=== PATIENT | male | born 1965 | race Caucasian/White ===

== ENCOUNTER 2017-07-04 08:14 | Day surgery (SDC) | payer BC ==
[2017-06-30 15:59] VITALS: BMI 29.7
[~2017-07-04 08:14] MED LIST: LACTATED RINGERS 1,000 ML IV SCH; LIDOCAINE 1% 20 ML VIAL (10MG/ML) FOR IV START INTRADERMA PRN
[2017-07-04 08:35] VITALS: TEMP 97.9
[2017-07-04] MEDS ORDERED: fentaNYL (PF) 50 MCG/ML 2 ML AMP ONE (08:59)
[2017-07-04] MEDS ORDERED: PROPOFOL 10 MG/ML 20 ML VIAL IV ONE (08:59)
[2017-07-04] MEDS ORDERED: LIDOCAINE 1% INJ 10MG/ML (20 ML MDV) ONE (08:59)
--- NOTE | 2017-07-04 09:07 | P.GSHP ---
History of Present Illness H&P Date: 07/04/17 Chief Complaint: Screening colonoscopy This a 51-year-old male referred from john Seo PA-C. Patient is today for screening colonoscopy. He denies any significant GI complaints. Past Medical History Past Medical History: No Reported History History of Any Multi-Drug Resistant Organisms: None Reported Past Surgical History: Cholecystectomy, Hernia Repair Past Anesthesia/Blood Transfusion Reactions: No Reported Reaction, Motion Sickness Past Psychological History: No Psychological Hx Reported Smoking Status: Never smoker Past Alcohol Use History: None Reported Past Drug Use History: None Reported - Past Family History Mother Family Medical History: Cancer Additional Family Medical History / Comment(s): BREAST CANCER Medications and Allergies Home Medications Medication Instructions Recorded Confirmed Type No Known Home Medications [No 06/30/17 07/04/17 History Known Home Medications] Allergies Allergy/AdvReac Type Severity Reaction Status Date / Time No Known Allergies Allergy Verified 07/04/17 08:25 Surgical - Exam Vital Signs Temp Pulse Resp BP Pulse Ox 97.9 F 65 16 122/82 95 07/04/17 08:34 07/04/17 08:34 07/04/17 08:34 07/04/17 08:34 07/04/17 08:34 - General well developed, no distress - Eyes PERRL - ENT normal pinna - Neck no masses - Respiratory normal expansion - Cardiovascular Rhythm: regular - Abdomen Abdomen: soft, non tender Assessment and Plan Assessment: We'll perform screening colonoscopy.
--- NOTE | 2017-07-04 09:18 | P.OP ---
Date of Procedure: 07/04/17 Preoperative Diagnosis: Screening colonoscopy Postoperative Diagnosis: Normal colonoscopy Procedure(s) Performed: Colonoscopy Anesthesia: MAC Surgeon: Sonny Fitzgerald Pathology: none sent Condition: stable Disposition: PACU Description of Procedure: PROCEDURE: The patient was placed on the endoscopy table in the lateral position. Digital rectal examination was performed which revealed no abnormalities. The prostate was symmetrical without nodules. Flexible colonoscope was then placed in the patient's anus and passed throughout the entire colon. The ileocecal valve was visualized. The cecum, ascending, transverse, descending and sigmoid colon were normal. The rectum was normal as well. There were no masses, polyps or diverticula noted in the entire colon. SUMMARY OF FINDINGS: Normal colonoscopy.
[2017-07-04 09:29] VITALS: RESP 18
[2017-07-04 09:49] VITALS: BP 129/81; PULSE 55
== END 2017-07-04 09:55 | disposition home or self-care (01) ==
LOC: ORWHC2ENDO 08:14
PROVIDERS: ATTEND Surgery
DX: Z12.11 Encounter for screening for malignant neoplasm of colon (principal); Z90.49 Acquired absence of other specified parts of digestive tract
CPT/HCPCS: J2001; J3010; J2704; G0121

== ENCOUNTER 2018-06-26 19:45 | Emergency (ER) | payer BC ==
[2018-06-26 19:49] VITALS: RESP 16; TEMP 100
[2018-06-26] MEDS ORDERED: KETOROLAC 30 MG/ML 1 ML VIAL IVP STA (20:28)
[2018-06-26] MEDS ORDERED: SODIUM CHLORIDE 0.9% 1,000 ML IV STA ×2 (20:28)
[2018-06-26] MEDS ORDERED: MORPHINE SULFATE 2 MG/ML SYRINGE IVP ONE (20:52)
[2018-06-26 21:34] LABS: Basophils % (A) 0 %; Eosinophils # (A) 0.1 k/uL (0-0.7); Eosinophils % (A) 1 %; HCT 47.9 % (39.0-53.0); HGB 15.5 gm/dL (13.0-17.5); Lymphocytes # (A) 0.4 k/uL (1.0-4.8); Lymphocytes % (A) 5 %; MCH 26.1 pg (25.0-35.0); MCHC 32.5 g/dL (31.0-37.0); MCV 80.3 fL (80.0-100.0); Mean Platelet Volume 6.8; Monocytes # (A) 0.4 k/uL (0-1.0); Monocytes % (A) 6 %; Neutrophils # (A) 5.6 k/uL (1.3-7.7); Neutrophils % (A) 86 %; Platelet Count 239 k/uL (150-450); RBC 5.96 m/uL (4.30-5.90); WBC 6.5 k/uL (3.8-10.6)
[2018-06-26 21:35] LABS: Albumin 4.7 g/dL (3.5-5.0); Calcium 9.6 mg/dL (8.4-10.2); Potassium 3.9 mmol/L (3.5-5.1); Total Bilirubin 0.8 mg/dL (0.2-1.3)
--- NOTE | 2018-06-26 21:35 | ED ---
General Adult HPI - General Chief complaint: Nausea/Vomiting/Diarrhea Stated complaint: NVD Time Seen by Provider: 06/26/18 20:27 Source: patient, RN notes reviewed, old records reviewed Mode of arrival: ambulatory Limitations: no limitations - History of Present Illness Initial comments: Patient's 2-year-old male presents return today with fever and nausea and vomiting and diarrhea for the past day. Patient complains of no significant abdominal pain. Reports he feels better arterial vomit. He had a normal colonoscopy 2 years ago. Surgical history includes cholecystectomy. He is a nondrinker and nonsmoker. Generally healthy. Was sent in by PCP to rule out appendicitis. - Related Data Home Medications Medication Instructions Recorded Confirmed Ibuprofen [Motrin Ib] 600 mg PO ONCE 06/26/18 06/26/18 Ondansetron [Zofran ODT] 4 mg PO Q8HR PRN 06/26/18 06/26/18 Previous Rx's Medication Instructions Recorded Ondansetron Odt [Zofran Odt] 4 mg PO Q8HR PRN #12 tab 06/26/18 Allergies Allergy/AdvReac Type Severity Reaction Status Date / Time No Known Allergies Allergy Verified 06/26/18 20:38 Review of Systems ROS Statement: Those systems with pertinent positive or pertinent negative responses have been documented in the HPI. ROS Other: All systems not noted in ROS Statement are negative. Past Medical History Past Medical History: No Reported History History of Any Multi-Drug Resistant Organisms: None Reported Past Surgical History: Cholecystectomy, Hernia Repair Past Anesthesia/Blood Transfusion Reactions: No Reported Reaction, Motion Sick ness Past Psychological History: No Psychological Hx Reported Smoking Status: Never smoker Past Alcohol Use History: None Reported Past Drug Use History: None Reported - Past Family History Mother Family Medical History: Cancer Additional Family Medical History / Comment(s): BREAST CANCER General Exam - General Exam Comments Initial Comments: Well-appearing 52-year-old male. Alert and oriented 3. No significant distress. General: Well appearing, well nourished, in no distress. Oriented x 3, normal mood and affect . Ambulating without difficulty. Skin: Good turgor, no rash, unusual bruising or prominent lesions Hair: Normal texture and distribution. HEENT: Head: Normocephalic, atraumatic, no visible or palpable masses, depressions, or scaring. Eyes: Visual acuity intact, conjunctiva clear, sclera non-icteric, EOM intact, PERRL. Ears: EACs clear, TMs translucent & cone of light visualized. hearing intact. Nose: No external lesions, mucosa non-inflamed, septum and turbinates normal Mouth: Mucous membranes moist, no mucosal lesions. Teeth/Gums: No obvious caries or periodontal disease. No gingival inflammation or significant resorption. Pharynx: Mucosa non-inflamed, no tonsillar hypertrophy or exudate Neck: Supple, without lesions, bruits, or adenopathy, thyroid non-enlarged and non-tender Heart: No cardiomegaly or thrills; regular rate and rhythm, no murmur or gallop Lungs: Clear to auscultation and percussion Abdomen: Bowel sounds normal, no tenderness, organomegaly, masses, or hernia Back: Spine normal without deformity or tenderness, no CVA tenderness Extremities: No amputations or deformities, cyanosis, edema or varicosities, peripheral pulses intact Musculoskeletal: Normal gait and station. No misalignment, asymmetry, crepitation, defects, tenderness, masses, effusions, decreased range of motion, instability, atrophy or abnormal strength or tone in the head, neck, spine, ribs, pelvis or extremities. Neurologic: CN 2-12 normal. Sensation to pain, touch, and proprioception normal. DTRs normal in upper and lower extremities. No pathologic reflexes. Psychiatric: Oriented X3, intact recent and remote memory, judgment and insight, normal mood and affect. Limitations: no limitations Course Vital Signs 06/26/18 06/27/18 19:47 00:24 Temperature 100.0 F H Pulse Rate 98 67 Respiratory 16 16 Rate Blood Pressure 109/76 119/80 O2 Sat by Pulse 96 96 Oximetry Medical Decision Making - Medical Decision Making 52-year-old male presents for his nausea vomiting. He has a low-grade fever. No significant tenderness. Clavicles are unremarkable. Patient CT abdomen and pelvis completed as negative for any acute disease. His concern for appendicitis. Patient will be discharged at this time. PCP. Discharged with Rita. - Lab Data Result diagrams: 06/26/18 21:11 06/26/18 21:11 Lab Results 06/26/18 06/26/18 06/26/18 Range/Units 21:11 21:11 21:11 WBC 6.5 (3.8-10.6) k/uL RBC 5.96 H (4.30-5.90) m/uL Hgb 15.5 (13.0-17.5) gm/dL Hct 47.9 (39.0-53.0) % MCV 80.3 (80.0-100.0) fL MCH 26.1 (25.0-35.0) pg MCHC 32.5 (31.0-37.0) g/dL RDW 13.0 (11.5-15.5) % Plt Count 239 (150-450) k/uL Neutrophils % 86 % Lymphocytes % 5 % Monocytes % 6 % Eosinophils % 1 % Basophils % 0 % Neutrophils # 5.6 (1.3-7.7) k/uL Lymphocytes # 0.4 L (1.0-4.8) k/uL Monocytes # 0.4 (0-1.0) k/uL Eosinophils # 0.1 (0-0.7) k/uL Basophils # 0.0 (0-0.2) k/uL PT (9.0-12.0) sec INR (<1.2) APTT (22.0-30.0) sec Sodium 140 (137-145) mmol/L Potassium 3.9 (3.5-5.1) mmol/L Chloride 105 (98-107) mmol/L Carbon Dioxide 23 (22-30) mmol/L Anion Gap 12 mmol/L BUN 24 H (9-20) mg/dL Creatinine 1.22 (0.66-1.25) mg/dL Est GFR (CKD-EPI)AfAm 79 (>60 ml/min/1.73 sqM) Est GFR (CKD-EPI)NonAf 68 (>60 ml/min/1.73 sqM) Glucose 113 H (74-99) mg/dL Plasma Lactic Acid Mitch 1.1 (0.7-2.0) mmol/L Calcium 9.6 (8.4-10.2) mg/dL Total Bilirubin 0.8 (0.2-1.3) mg/dL AST 29 (17-59) U/L ALT 33 (21-72) U/L Alkaline Phosphatase 98 (38-126) U/L Total Protein 8.0 (6.3-8.2) g/dL Albumin 4.7 (3.5-5.0) g/dL Amylase 51 (30-110) U/L Lipase 34 (23-300) U/L 06/26/18 Range/Units 21:11 WBC (3.8-10.6) k/uL RBC (4.30-5.90) m/uL Hgb (13.0-17.5) gm/dL Hct (39.0-53.0) % MCV (80.0-100.0) fL MCH (25.0-35.0) pg MCHC (31.0-37.0) g/dL RDW (11.5-15.5) % Plt Count (150-450) k/uL Neutrophils % % Lymphocytes % % Monocytes % % Eosinophils % % Basophils % % Neutrophils # (1.3-7.7) k/uL Lymphocytes # (1.0-4.8) k/uL Monocytes # (0-1.0) k/uL Eosinophils # (0-0.7) k/uL Basophils # (0-0.2) k/uL PT 10.1 (9.0-12.0) sec INR 0.9 (<1.2) APTT 23.4 (22.0-30.0) sec Sodium (137-145) mmol/L Potassium (3.5-5.1) mmol/L Chloride (98-107) mmol/L Carbon Dioxide (22-30) mmol/L Anion Gap mmol/L BUN (9-20) mg/dL Creatinine (0.66-1.25) mg/dL Est GFR (CKD-EPI)AfAm (>60 ml/min/1.73 sqM) Est GFR (CKD-EPI)NonAf (>60 ml/min/1.73 sqM) Glucose (74-99) mg/dL Plasma Lactic Acid Mitch (0.7-2.0) mmol/L Calcium (8.4-10.2) mg/dL Total Bilirubin (0.2-1.3) mg/dL AST (17-59) U/L ALT (21-72) U/L Alkaline Phosphatase (38-126) U/L Total Protein (6.3-8.2) g/dL Albumin (3.5-5.0) g/dL Amylase (30-110) U/L Lipase (23-300) U/L - Radiology Data Radiology results: report reviewed Normal CT of the abdomen and pelvis. No evidence of acute process. Disposition Clinical Impression: Gastroenteritis Disposition: HOME SELF-CARE Condition: Good Instructions (If sedation given, give patient instructions): Acute Nausea and Vomiting (ED) Additional Instructions: Patient advised to have follow-up with primary care doctor. Alternating Motrin and Tylenol. Use nausea medicine as directed. Return to the emergency department if any alarming signs or symptoms occur. Prescriptions: Ondansetron Odt [Zofran Odt] 4 mg PO Q8HR PRN #12 tab PRN Reason: Nausea Is patient prescribed a controlled substance at d/c from ED?: No Referrals: Laura Myers DO [Primary Care Provider] - 1-2 days Time of Disposition: 23:37
[2018-06-26 21:41] LABS: INR 0.9 (<1.2); Partial Thromboplastin Time 23.4 sec (22.0-30.0); Prothrombin Time 10.1 sec (9.0-12.0)
--- NOTE | 2018-06-26 23:15 | CT ---
EXAM: CT Abdomen and Pelvis With Intravenous Contrast CLINICAL HISTORY: fever pain TECHNIQUE: Axial computed tomography images of the abdomen and pelvis with intravenous contrast. DLP is 859.8 mGy-cm. This CT exam was performed using one or more of the following dose reduction techniques: automated exposure control, adjustment of the mA and/or kV according to patient size, and/or use of iterative reconstruction technique. Coronal and sagittal reconstructions are performed COMPARISON: No relevant prior studies available. FINDINGS: Lung bases: Small amount of posterior dependent atelectasis. ABDOMEN: Liver: 4 mm hypodensity in the left lobe, too small to characterize Gallbladder and bile ducts: Cholecystectomy clips Pancreas: Unremarkable. No mass. No ductal dilation. Spleen: Unremarkable. No splenomegaly. Adrenals: Unremarkable. No mass. Kidneys and ureters: Small bilateral renal cysts. Larger cysts in the right kidney measuring about 14 mm Stomach and bowel: Unremarkable. No obstruction. No mucosal thickening. PELVIS: Appendix: Normal Bladder: Unremarkable. No mass. Reproductive: Unremarkable as visualized. ABDOMEN and PELVIS: Intraperitoneal space: Unremarkable. No free air. No significant fluid collection. Bones/joints: No acute fracture. No dislocation. Soft tissues: Unremarkable. Vasculature: Unremarkable. No abdominal aortic aneurysm. Lymph nodes: Unremarkable. No enlarged lymph nodes. IMPRESSION: No acute findings.
[2018-06-27 00:25] VITALS: BP 119/80; PULSE 67
== END 2018-06-27 00:25 | disposition home or self-care (01) ==
LOC: EC 19:45
DX: K52.9 Noninfective gastroenteritis and colitis, unspecified (principal); Z79.1 Long term (current) use of non-steroidal anti-inflammatories (NSAID); Z90.49 Acquired absence of other specified parts of digestive tract
CPT/HCPCS: 36415; 80053; 82150; 83605; 83690; 85025; 85610; 85730; 87040; 74177; 99284; 96374; 96375; 96361 ×3; J1885; J2270; Q9967

== ENCOUNTER 2018-07-16 17:53 | Emergency (ER) | payer BC ==
[2018-07-16 18:14] VITALS: BP 108/77; PULSE 60; RESP 18; TEMP 98.4
[2018-07-16] MEDS ORDERED: LIDOCAINE 1% INJ 10MG/ML (20 ML MDV) SQ ONE (18:20)
--- NOTE | 2018-07-16 18:39 | ED ---
Wound/Laceration HPI - General Chief Complaint: Wound/Laceration Stated Complaint: Head Lac Time Seen by Provider: 07/16/18 18:15 Source: patient Mode of arrival: ambulatory Limitations: no limitations - History of Present Illness Initial Comments: 53-year-old male presenting today for chief complaint of right forehead laceration. Patient states he was working in his pole barn when a screwdriver fell from a shelf striking his right side of head. Patient denies loss of conscious. He denies any headache dizziness nausea vomiting behavior changes or symptoms aside from bleeding at the site of the laceration, and pain at laceration site. Pt thought he may need suture, applied pressure and presented for evaluation. Pt states tetanus is UTD. Remaining ROS (-), denies any other areas of injury. - Related Data Home Medications Medication Instructions Recorded Confirmed Ibuprofen [Motrin Ib] 600 mg PO ONCE 06/26/18 06/26/18 Ondansetron [Zofran ODT] 4 mg PO Q8HR PRN 06/26/18 06/26/18 Previous Rx's Medication Instructions Recorded Ondansetron Odt [Zofran Odt] 4 mg PO Q8HR PRN #12 tab 06/26/18 Allergies Allergy/AdvReac Type Severity Reaction Status Date / Time No Known Allergies Allergy Verified 06/26/18 20:38 Review of Systems ROS Statement: Those systems with pertinent positive or pertinent negative responses have been documented in the HPI. ROS Other: All systems not noted in ROS Statement are negative. Past Medical History Past Medical History: No Reported History History of Any Multi-Drug Resistant Organisms: None Reported Past Surgical History: Cholecystectomy, Hernia Repair Past Anesthesia/Blood Transfusion Reactions: No Reported Reaction, Motion Sickness Past Psychological History: No Psychological Hx Reported Smoking Status: Never smoker Past Alcohol Use History: None Reported Past Drug Use History: None Reported - Past Family History Mother Family Medical History: Cancer Additional Family Medical History / Comment(s): BREAST CANCER General Exam - General Exam Comments Initial Comments: General: The patient is awake and alert, in no distress, and does not appear acutely ill. Eye: +3 mm pupils are equal, round and reactive to light, extra-ocular movements are intact. No nystagmus. There is normal conjunctiva bilaterally. No signs of icterus. Ears, nose, mouth and throat: There are moist mucous membranes and no oral lesions. No raccoon or Fair[place] sign. Neck: The neck is supple, there is no tenderness or JVD. Cardiovascular: There is a regular rate and rhythm. No murmur, rub or gallop is appreciated. Respiratory: Lungs are clear to auscultation, respirations are non-labored, breath sounds are equal. No wheezes, stridor, rales, or rhonchi. Gastrointestinal: Soft, non-distended, non-tender abdomen without masses or organomegaly noted. There is no rebound or guarding present. No CVA tenderness. Bowel sounds are unremarkable. Musculoskeletal: Normal ROM, no tenderness. Strength 5/5. Sensation intact. Pulses equal bilaterally 2+. Neurological: A&O x 3. CN II-XII intact, There are no obvious motor or sensory deficits. Coordination appears grossly intact. Speech is normal. Skin: Skin is warm and dry and no rashes. 2cm laceration linear of the right forehead. No underlying structure or FB upon exploration. No active bleeding. Psychiatric: Cooperative, appropriate mood & affect, normal judgment. Limitations: no limitations Course Vital Signs 07/16/18 18:10 Temperature 98.4 F Pulse Rate 60 Respiratory 18 Rate Blood Pressure 108/77 O2 Sat by Pulse 94 L Oximetry Procedures - Laceration Laceration #1 Consent Obtained: verbal consent Indication: laceration Site: face Size (cm): 2 Description: linear Depth: simple, single layer Anesthetic Used: lidocaine 1% Anesthesia Technique: local infiltration Amount (mls): 2 Pre-repair: wound explored, irrigated extensively, deep structures intact Type of Sutures: nylon Size of Sutures: 6-0 Number of Sutures: 5 Technique: simple, interrupted, running Patient Tolerated Procedure: well, no complications Medical Decision Making - Medical Decision Making 53-year-old male presenting today for chief complaint of forehead laceration. Patient had no loss of consciousness. He denies any neurological symptoms. No focal neurological deficits on examination. There is a superficial laceration of the right side of the forehead. Wound edges were approximated after e xtensive expiration, irrigation and cleansing. Local anesthetic was used 1% lidocaine. Patient tolerated procedure well. Return parameters as well as suture care and signs and symptoms of infection were discussed the patient verbalizes understanding. Patient was discharged appearing well after discussing the case with attending provider Dr. Pratt. Disposition Clinical Impression: Forehead laceration Disposition: HOME SELF-CARE Condition: Good Instructions (If sedation given, give patient instructions): Care For Your Stitches (ED), Laceration (ED) Additional Instructions: Please use topical medication as discussed. Please follow-up in the ER in 5 days for suture removal.. Please return to emergency room if the symptoms increase or worsen or for any other concerns. Is patient prescribed a controlled substance at d/c from ED?: No Referrals: Laura Myers DO [Primary Care Provider] - 1-2 days Time of Disposition: 18:39
== END 2018-07-16 18:53 | disposition home or self-care (01) ==
LOC: EC 17:53
DX: S01.81XA Laceration without foreign body of other part of head, initial encounter (principal); W20.8XXA Other cause of strike by thrown, projected or falling object, initial encounter; Y92.009 Unspecified place in unspecified non-institutional (private) residence as the place of occurrence of the external cause
CPT/HCPCS: 99282; 12011; J2001

== ENCOUNTER 2021-01-26 16:44 | Emergency (ER) | payer BC ==
[2021-01-26 17:01] VITALS: BP 91/62; PULSE 53; RESP 18; TEMP 98.2
[2021-01-26] MEDS ORDERED: LIDOCAINE 1% INJ 10MG/ML (20 ML MDV) SQ ONE (17:07)
[2021-01-26] MEDS ORDERED: KETOROLAC 15 MG/ML 1 ML VIAL IM STA (17:07)
[2021-01-26] MEDS ORDERED: BACITRACIN OINT 1 EACH PACKET TOPICAL ONE (17:08)
--- NOTE | 2021-01-26 18:05 | ED ---
Skin/Abscess/FB HPI - General Chief complaint: Skin/Abscess/Foreign Body Stated complaint: facial injury, lightheaded Time Seen by Provider: 01/26/21 17:04 Source: patient, RN notes reviewed Mode of arrival: wheelchair Limitations: no limitations - History of Present Illness Initial comments: Patient is a 55-year-old male presenting to the emergency department complaints of a laceration to his nose that happened just prior to arrival. Patient states he was on his riding lawnmower and went to talk underneath a tree to motor one underneath a tree however a piece of tree branch hit him in the nose and caused a laceration. He is not on blood thinners, the bleeding is controlled. He states he is having a lot of discomfort and feels a little dizzy from the pain. He is Up-to-date with his tetanus vaccine. He denies any further complaints at this time. - Related Data Home Medications Medication Instructions Recorded Confirmed Ibuprofen [Motrin Ib] 600 mg PO ONCE 06/26/18 06/26/18 Ondansetron [Zofran ODT] 4 mg PO Q8HR PRN 06/26/18 06/26/18 Previous Rx's Medication Instructions Recorded Ondansetron Odt [Zofran Odt] 4 mg PO Q8HR PRN #12 tab 06/26/18 Allergies Allergy/AdvReac Type Severity Reaction Status Date / Time No Known Allergies Allergy Verified 01/26/21 17:01 Review of Systems ROS Statement: Those systems with pertinent positive or pertinent negative responses have been documented in the HPI. ROS Other: All systems not noted in ROS Statement are negative. Past Medical History Past Medical History: No Reported History History of Any Multi-Drug Resistant Organisms: None Reported Past Surgical History: Cholecystectomy, Hernia Repair Past Anesthesia/Blood Transfusion Reactions: No Reported Reaction, Motion Sickness Past Psychological History: No Psychological Hx Reported Smoking Status: Never smoker Past Alcohol Use History: None Reported Past Drug Use History: None Reported - Past Family History Mother Family Medical History: Cancer Additional Family Medical History / Comment(s): BREAST CANCER General Exam - General Exam Comments Initial Comments: GENERAL: Patient is well-developed and well-nourished. Patient is nontoxic and in no acute distress. HEAD: Atraumatic, normocephalic. EYES: Pupils equal round and reactive to light, extraocular movements intact, sclera anicteric, conjunctiva are normal. Eyelids were unremarkable. ENT: Nares patent, oropharynx clear without exudates. Moist mucous membranes. NECK: Normal range of motion, supple without lymphadenopathy or JVD. LUNGS: Unlabored respirations. Breath sounds clear to auscultation bilaterally and equal. No wheezes rales or rhonchi. HEART: Regular rate and rhythm without murmurs, rubs or gallops. NEUROLOGICAL: Patient is alert and oriented x 3. SKIN: Warm, Dry, normal turgor, no rashes. Patient has a 1.5 cm laceration on the distal end of his nose, no active bleeding. He also has a mild abrasion to the right forehead and to the nasal bridge. Limitations: no limitations Course Vital Signs 01/26/21 16:57 Temperature 98.2 F Pulse Rate 53 L Respiratory 18 Rate Blood Pressure 91/62 O2 Sat by Pulse 99 Oximetry Procedures - Laceration Laceration #1 Consent Obtained: verbal consent Indication: laceration Site: face (nose) Size (cm): 0 (1.5cm) Description: linear Depth: simple, single layer Anesthetic Used: lidocaine 1% Anesthesia Technique: local infiltration Amount (mls): 2 Pre-repair: irrigated extensively Type of Sutures: nylon Size of Sutures: 6-0 Number of Sutures: 6 Technique: simple, interrupted Patient Tolerated Procedure: well Medical Decision Making - Medical Decision Making Patient is a 55-year-old male here with a 1.5 cm laceration to his nose secondary from a tree branch while he was cutting the lawn on a riding l awnmower. He has tetanus is up-to-date. He is not on blood thinners, bleeding controlled. Patient's wound was cleaned, closed with 6, 6-0 sutures. He tolerated procedure well. I also reinforced the wound with Steri-Strips. Sutures will be removed in 7-10 days, we discussed would care. He is stable for discharge and he is in agreement with this plan of care. Disposition Clinical Impression: Laceration of nose Disposition: HOME SELF-CARE Condition: Stable Instructions (If sedation given, give patient instructions): Care For Your Stitches (ED) Additional Instructions: Please return to the Emergency Department if symptoms worsen or any other concerns. Stitches need to be removed in 7-10 days. Keep area clean and dry. May take showers as normal. Take Tylenol and/or Motrin for pain relief, apply ice to the area to help with swelling control. Is patient prescribed a controlled substance at d/c from ED?: No Referrals: Laura Myers DO [Primary Care Provider] - 1-2 days Time of Disposition: 18:05
== END 2021-01-26 18:15 | disposition home or self-care (01) ==
LOC: EC 16:44
DX: S01.21XA Laceration without foreign body of nose, initial encounter (principal); R42 Dizziness and giddiness; W22.8XXA Striking against or struck by other objects, initial encounter; Y93.H2 Activity, gardening and landscaping; Y92.89 Other specified places as the place of occurrence of the external cause
CPT/HCPCS: 99283; 12011; 96372; J2001; J1885

== ENCOUNTER → 2022-09-30 | Outpatient (CLI) | payer BC ==
--- NOTE | 2022-09-30 14:13 | US ---
EXAMINATION TYPE: US venous doppler duplex LE RT DATE OF EXAM: 09/30/2022 1:49 PM COMPARISON: NONE CLINICAL INDICATION: Male, 57 years old with history of I80.9 PHLEBITIS AND THROMBOPHLEBITIS; Pt had outside imaging: Per [facility] MRI states: dilated gastroc veins, thrombosis vs. muscle strain PT has rt prox calf swelling and pain x 4 weeks SIDE PERFORMED: Right TECHNIQUE: The lower extremity deep venous system is examined utilizing real time linear array sonog yuniel with graded compression, doppler sonography and color-flow sonography. VESSELS IMAGED: Common Femoral Vein Deep Femoral Vein Greater Saphenous Vein * Femoral Vein Popliteal Vein Small Saphenous Vein * Proximal Calf Veins (* superficial vessels) Right Leg: Negative for DVT RT lateral gastroc veins in proximal calf appear fully thrombosed, another pair of gastroc veins medi ally are partially thrombosed within the proximal calf. Pt could not tolerate compressions in AOC. Th rombus does not appear to communicate with deep system at this time IMPRESSION: Exam positive for right lower extremity venous thrombosis, occlusive involving lateral ga stroc veins in the upper calf. There is additional nonocclusive thrombus within the pair of medial ga stroc veins in the upper calf. No clear communication with the deep venous system at this time.
== END | disposition home or self-care (01) ==
LOC: RADUSWWP 13:09
PROVIDERS: ATTEND Orthopaedic Surgery Sports Medicine
DX: I80.9 Phlebitis and thrombophlebitis of unspecified site (principal)

== ENCOUNTER 2022-10-27 09:19 | Emergency (ER) | payer BC ==
[2022-10-27] MEDS ORDERED: methocarbamoL 500 MG TAB PO STA (09:38)
[2022-10-27] MEDS ORDERED: KETOROLAC 15 MG/ML 1 ML VIAL IVP STA (09:38)
[2022-10-27] MEDS ORDERED: SODIUM CHLORIDE 0.9% 1,000 ML IV STA (09:38)
[2022-10-27] MEDS ORDERED: LORazepam 1 MG TAB PO STA (09:58)
[2022-10-27 10:00] LABS: Basophils % (A) 0 %; Eosinophils # (A) 0.2 k/uL (0-0.7); Eosinophils % (A) 2 %; HCT 38.6 % (39.0-53.0); HGB 12.9 gm/dL (13.0-17.5); Lymphocytes # (A) 0.7 k/uL (1.0-4.8); Lymphocytes % (A) 7 %; MCH 28.5 pg (25.0-35.0); MCHC 33.5 g/dL (31.0-37.0); MCV 85.1 fL (80.0-100.0); Mean Platelet Volume 7.7; Monocytes # (A) 0.5 k/uL (0-1.0); Monocytes % (A) 6 %; Neutrophils # (A) 7.8 k/uL (1.3-7.7); Neutrophils % (A) 85 %; Platelet Count 226 k/uL (150-450); RBC 4.54 m/uL (4.30-5.90); RDW 13.5 % (11.5-15.5); WBC 9.2 k/uL (3.8-10.6)
[2022-10-27 10:11] LABS: INR 1.1 (<1.2); Partial Thromboplastin Time 27.1 sec (22.0-30.0); Prothrombin Time 11.6 sec (9.0-12.0)
[2022-10-27 10:25] LABS: ALT 25 U/L (4-49); AST 29 U/L (17-59); African American GFR (CKD) 64 (>60 ml/min/1.73 sqM); Albumin 3.8 g/dL (3.5-5.0); Alkaline Phosphatase 77 U/L (38-126); Anion Gap 9 mmol/L; Blood Urea Nitrogen 18 mg/dL (9-20); Calcium 8.8 mg/dL (8.4-10.2); Carbon Dioxide 23 mmol/L (22-30); Chloride 106 mmol/L (98-107); Glucose 114 mg/dL (74-99); Non-African American GFR(CKD) 55 (>60 ml/min/1.73 sqM); Potassium 4.5 mmol/L (3.5-5.1); Sodium 138 mmol/L (137-145); Total Bilirubin 0.8 mg/dL (0.2-1.3); Total Protein 6.8 g/dL (6.3-8.2)
[2022-10-27 10:32] LABS: NT-Pro-B-Type Natriuretic Pept 22 pg/mL
--- NOTE | 2022-10-27 10:48 | CT ---
EXAMINATION TYPE: CT chest angio for PE DATE OF EXAM: 10/27/2022 COMPARISON: None HISTORY: Chest pain, hard to breath, known DVT CT DLP: 569 mGycm CONTRAST: CT chest with contrast and 3D reconstruction with MIP imaging is performed with IV Contrast, patient injected with 100 mL of Isovue 370. Contrast-enhanced CT of the chest was performed through the course of the pulmonary arteries with supriya g and mediastinal window settings submitted. 3D reconstruction with MIP imaging was also performed. PULMONARY ARTERIES: There is mild wall thickening of several lower lobe segmental and subsegmental br anches felt to reflect mild chronic pulmonary embolism. No acute occlusive pulmonary embolism is iden tified with certainty at this point in time. LUNGS: Dependent groundglass atelectasis. The lungs are clear and free of infiltrate. No evidence for atelectasis. No pulmonary nodule or mass is detected. No pleural effusion. MEDIASTINUM: Thoracic aorta is of normal caliber. The heart is mildly enlarged. No evidence for med iastinal mass. No mediastinal lymph nodes greater than 1cm. HILAR STRUCTURES: No evidence for mass. No hilar lymph nodes greater than 1 cm. UPPER ABDOMEN: No significant abnormality is seen. IMPRESSION: 1. There is mild wall thickening of several lower lobe segmental and subsegmental branches felt to reflect mild chronic pulmonary embolism. No acute occlusive pulmonary embolism is identified with cer tainty at this point in time.
--- NOTE | 2022-10-27 12:29 | XR ---
EXAMINATION TYPE: XR knee complete 3 views RT, XR tibia fibula 2 views RT DATE OF EXAM: 10/27/2022 COMPARISON: NONE HISTORY: 57-year-old male fall, pain FINDINGS: Right knee: Large joint effusion. Extensor mechanism appears intact. Degenerative spurring patellofem oral compartment. No acute fracture, subluxation, dislocation seen. Some irregularity at the tibial t uberosity suggesting chronic insertional tendinopathy. Tibia/fibula: No acute fracture is identified. Ankle articulation appears grossly intact. A fine 6 mm linear density projecting in the soft tissues of the lateral mid leg. IMPRESSION: 1. Right knee: Large knee joint effusion but without acute osseous abnormality seen. Consider interna l derangement and further MRI evaluation. 2. Tibia/fibula: A 6 mm linear density projecting in the soft tissues of the lateral mid leg could re present external artifact or tiny retained foreign body material. No acute osseous adenopathy seen.
[2022-10-27 12:58] VITALS: BP 108/68; PULSE 66; RESP 18; TEMP 97.9
--- NOTE | 2022-10-27 13:04 | ED ---
General Adult HPI - General Chief complaint: Shortness of Breath Stated complaint: rt leg pain - poss dvt Time Seen by Provider: 10/27/22 09:29 Source: patient, RN notes reviewed, old records reviewed Mode of arrival: EMS - History of Present Illness Initial comments: Patient is a 57-year-old male with past medical history remarkable for DVT diagnosis of weeks ago compliant with this HE states he fell yesterday onto his right knee and has since been having right calf pain. It attempt to take tramadol for pain control, and then had an anxiety attack. This has happened previously. Whenever he eats anything stronger than Tylenol or Motrin, he has panic attacks. States caused him to step breathing heavily, became short of breath. Denies any chest pain. Denies any obvious injuries. Difficulty with moving his right knee secondary to a muscle spasm sensation in the right calf. Denies any fevers, chills, sick contacts. Patient is a history of having anxiety attacks when he takes pain medications. Has no other acute complaints at this time. presents for further evaluation at this time over concern for his shortness of breath and is endorsing severe anxiety as well as muscle spasms in his right leg. - Related Data Home Medications Medication Instructions Recorded Confirmed Rivaroxaban [Xarelto] 20 mg PO DAILY 10/27/22 10/27/22 allopurinoL 300 mg PO DAILY 10/27/22 10/27/22 methocarbamoL [Robaxin] 1,000 mg PO BID PRN 10/27/22 10/27/22 Previous Rx's Medication Instructions Recorded Cyclobenzaprine [Flexeril] 5 mg PO TID PRN 7 Days #21 tablet 10/27/22 Diclofenac Sodium [Voltaren] 25 mg PO TID PRN 7 Days #21 tab 10/27/22 LORazepam [Ativan] 0.5 mg PO DAILY PRN 3 Days #3 tab 10/27/22 Allergies Allergy/AdvReac Type Severity Reaction Status Date / Time morphine AdvReac anxiety Verified 10/27/22 12:30 Review of Systems ROS Statement: Those systems with pertinent positive or pertinent negative responses have been documented in the HPI. Review of Systems: CONST: Endorses anxiety EYES: Denies blurry vision ENT: Denies nasal congestion C/V: Denies Chest pain RESP: Endorses shortness of breath GI: Denies abdominal pain : Denies dysuria SKIN: Denies rash. MSK: Endorses right leg pain NEURO: Denies headache ROS Other: All systems not noted in ROS Statement are negative. Past Medical History Past Medical History: Deep Vein Thrombosis (DVT) History of Any Multi-Drug Resistant Organisms: None Reported Past Surgical History: Cholecystectomy, Hernia Repair Past Anesthesia/Blood Transfusion Reactions: No Reported Reaction, Motion Sickn ess Past Psychological History: No Psychological Hx Reported Smoking Status: Never smoker Past Alcohol Use History: None Reported Past Drug Use History: None Reported - Past Family History Mother Family Medical History: Cancer Additional Family Medical History / Comment(s): BREAST CANCER General Exam - General Exam Comments Initial Comments: General: Appears very anxious. HEAD: Normal with no signs of head trauma. EYES: PERRLA, EOMI, conjunctiva normal, no discharge. ENT: Hearing grossly intact, normal oropharynx. RESPIRATORY: Clear breath sounds bilaterally. No wheezes, rales, or rhonchi. No hypoxia. No respiratory distress. C/V: Regular rate and rhythm. S1 and S2 auscultated, no edema, peripheral pulses 2+ and intact throughout ABD: Abd is soft, nontender, nondistended EXT: This range of motion the knee secondary to pain which he describes a pulling sensation radiating from the right posterior calf towards the posterior right thigh. No obvious skin changes. Tenderness with movement. Denies any knee pain on palpation. Denies any pelvis pain. No other acute complaints at this time. SKIN: No rashes or lesions observed on exposed skin. NEURO: Alert and oriented 4. Course Vital Signs 10/27/22 10/27/22 10/27/22 09:22 09:52 10:50 Temperature 98.6 F Pulse Rate 62 64 65 Respiratory 18 18 16 Rate Blood Pressure 121/80 125/90 127/74 O2 Sat by Pulse 97 97 99 Oximetry 10/27/22 12:55 Temperature 97.9 F Pulse Rate 66 Respiratory 18 Rate Blood Pressure 108/68 O2 Sat by Pulse 96 Oximetry Medical Decision Making - Medical Decision Making Was pt. sent in by a medical professional or institution (, PA, FORM BUILDING SUPERVISOR, urgent care, hospital, or fpc...) When possible be specific @ -No Did you speak to anyone other than the patient for history (EMS, parent, family, police, friend...)? What history was obtained from this source @ -No Did you review nursing and triage notes (agree or disagree)? Why? @ -I reviewed and agree with nursing and triage notes Were old charts reviewed (outside hosp., previous admission, EMS record, old EKG, old radiological studies, urgent care reports/EKG's, fpc records)? Report findings @ -No old charts were reviewed Differential Diagnosis (chest pain, altered mental status, abdominal pain women, abdominal pain men, vaginal bleeding, weakness, fever, dyspnea, syncope, headache, dizziness, GI bleed, back pain, seizure, CVA, palpatations, mental health, musculoskeletal)? @ -Differential Musculoskeletal Muscular strain, contusion, ligament sprain, fracture, arthritis, septic arthritis, bursitis, cellulitis, muscle spasm, nerve compression, DVT, arterial occlusion, herpes zoster, electrolyte abnormality, tumor.... This is not meant to be in all inclusive list Differential Dyspnea: Coronary syndrome, arrhythmia, tamponade, asthma, COPD, pulmonary embolism, pneumonia, pneumothorax, pulmonary effusion, anaphylaxis, diabetic ketoacidosis, flailed chest, pulmonary contusion, diaphragmatic rupture, anemia, eder romuscular, this is not meant to be an all-inclusive list. EKG interpreted by me (3pts min.). @ -As above X-rays interpreted by me (1pt min.). @ -X-rays of the right knee and right tib-fib negative for any obvious acute pr ocess. CT interpreted by me (1pt min.). @ -CT PE reveals no obvious large vessel occlusion or large vessel PE. Possible chronic PEs noted without any acute process. U/S interpreted by me (1pt. min.). @ -None done What testing was considered but not performed or refused? (CT, X-rays, U/S, labs)? Why? @ -None What meds were considered but not given or refused? Why? @ -None Did you discuss the management of the patient with other professionals (professionals i.e. , PA, FORM BUILDING SUPERVISOR, lab, RT, psych nurse, high school social studies tutor, roll press operator, teacher, chief business officer, keycase assembler)? Give summary @ -No Was smoking cessation discussed for >3mins.? @ -No Was critical care preformed (if so, how long)? @ -No Were there social determinants of health that impacted care today? How? (Homelessness, low income, unemployed, alcoholism, drug addiction, transportation, low edu. Level, literacy, decrease access to med. care, half-way, rehab)? @ -No Was there de-escalation of care discussed even if they declined (Discuss DNR or withdrawal of care, Hospice)? DNR status @ -No What co-morbidities impacted this encounter? (DM, HTN, Smoking, COPD, CAD, Cancer, CVA, ARF, Chemo, Hep., AIDS, mental health diagnosis, sleep apnea, morbid obesity)? @ -None Was patient admitted / discharged? Hospital course, mention meds given and route, prescriptions, significant lab abnormalities, going to OR and other pertinent info. @ -Based on the patient's presentation and physical exam, I do believe that he is experiencing anxiety after he took a pain medication, as his trace of breath started immediately after that. However he is also having right leg pain and appears to be more of a muscle strain. However we will obtain CT, as well as cardiac workup. He was in agreement this plan. He declines all opiate medications. He'll be given IV Toradol, 1 L fluid bolus, as well as Robaxin. He'll also be given Ativan for anxiety. He was in agreement this plan. Vital signs within acceptable limits. No respiratory distress. EKG showed no signs of acute ischemia. Patient's labs are relatively unremarkable. Troponin undetectable. BNP within normal limits. CT PE reveals no acute PE but does show findings according to radiology of possible chronic subsegmental PE on the right which does not appear to be causing any acute process. His x-ray shows no obvious acute traumatic injury. On reevaluation, I discussed results of the patient's as well as the patient. Patient's believes that the shortness of breath episode earlier also was secondary to pain meds that she gave him with tramadol is because of his muscle spasm sensation and she immediately began having anxiety which is typical and the patient receives pain medications. We discussed the CT imaging which was likely chronic. Patient is already on and is compliant with blood thinning medication. Has no obvious acute injury. I discussed is likely a muscle spasming. Patient is feeling improved. We will attempt discharge home at this time with close follow up with PCP. There were no agreement this plan. I will provide the patient with a prescription for Ativan, Flexeril, Voltaren. I instructed the patient to follow up with their PCP in the next 1-3 day . I explained that the patient should return to the emergency department if they experience any worsening symptoms. Strict return precautions were discussed with the patient. The patient expressed understanding of these instructions. I answered all questions that the patient had. The patient was discharged home in fair condition with their prescriptions and follow up information. Undiagnosed new problem with uncertain prognosis? @ -No Drug Therapy requiring intensive monitoring for toxicity (Heparin, Nitro, Insulin, Cardizem)? @ -No Were any procedures done? @ -No Diagnosis/symptom? @ -right knee sprain, anxiety Acute, or Chronic, or Acute on Chronic? @ -Acute Uncomplicated (without systemic symptoms) or Complicated (systemic symptoms)? @ -Complicated Side effects of treatment? @ -No Exacerbation, Progression, or Severe Exacerbation? @ -No Poses a threat to life or bodily function? How? (Chest pain, [place], MA, pneumonia, PE, COPD, DKA, ARF, appy, cholecystitis, CVA, Diverticulitis, Homicidal, Suicidal, threat to staff... and all critical care pts) @ -No Diagnosis/symptom? @ -DVT, chronic PE compliant with Xeralto Acute, or Chronic, or Acute on Chronic? @ -Chronic Uncomplicated (without systemic symptoms) or Complicated (systemic symptoms)? @ -Uncomplicated Side effects of treatment? @ -none Exacerbation, Progression, or Severe Exacerbation] @ -no Poses a threat to life or bodily function? @ -no - Lab Data Result diagrams: 10/27/22 09:45 10/27/22 09:45 Lab Results 10/27/22 10/27/22 10/27/22 Range/Units 09:45 09:45 09:45 WBC 9.2 (3.8-10.6) k/uL RBC 4.54 (4.30-5.90) m/uL Hgb 12.9 L (13.0-17.5) gm/dL Hct 38.6 L (39.0-53.0) % MCV 85.1 (80.0-100.0) fL MCH 28.5 (25.0-35.0) pg MCHC 33.5 (31.0-37.0) g/dL RDW 13.5 (11.5-15.5) % Plt Count 226 (150-450) k/uL MPV 7.7 Neutrophils % 85 % Lymphocytes % 7 % Monocytes % 6 % Eosinophils % 2 % Basophils % 0 % Neutrophils # 7.8 H (1.3-7.7) k/uL Lymphocytes # 0.7 L (1.0-4.8) k/uL Monocytes # 0.5 (0-1.0) k/uL Eosinophils # 0.2 (0-0.7) k/uL Basophils # 0.0 (0-0.2) k/uL PT 11.6 (9.0-12.0) sec INR 1.1 (<1.2) APTT 27.1 (22.0-30.0) sec Sodium 138 (137-145) mmol/L Potassium 4.5 (3.5-5.1) mmol/L Chloride 106 (98-107) mmol/L Carbon Dioxide 23 (22-30) mmol/L Anion Gap 9 mmol/L BUN 18 (9-20) mg/dL Creatinine 1.41 H (0.66-1.25) mg/dL Est GFR (CKD-EPI)AfAm 64 (>60 ml/min/1.73 sqM) Est GFR (CKD-EPI)NonAf 55 (>60 ml/min/1.73 sqM) Glucose 114 H (74-99) mg/dL Calcium 8.8 (8.4-10.2) mg/dL Magnesium 2.0 (1.6-2.3) mg/dL Total Bilirubin 0.8 (0.2-1.3) mg/dL AST 29 (17-59) U/L ALT 25 (4-49) U/L Alkaline Phosphatase 77 (38-126) U/L Troponin I (0.000-0.034) ng/mL NT-Pro-B Natriuret Pep 22 pg/mL Total Protein 6.8 (6.3-8.2) g/dL Albumin 3.8 (3.5-5.0) g/dL 10/27/22 Range/Units 09:45 WBC (3.8-10.6) k/uL RBC (4.30-5.90) m/uL Hgb (13.0-17.5) gm/dL Hct (39.0-53.0) % MCV (80.0-100.0) fL MCH (25.0-35.0) pg MCHC (31.0-37.0) g/dL RDW (11.5-15.5) % Plt Count (150-450) k/uL MPV Neutrophils % % Lymphocytes % % Monocytes % % Eosinophils % % Basophils % % Neutrophils # (1.3-7.7) k/uL Lymphocytes # (1.0-4.8) k/uL Monocytes # (0-1.0) k/uL Eosinophils # (0-0.7) k/uL Basophils # (0-0.2) k/uL PT (9.0-12.0) sec INR (<1.2) APTT (22.0-30.0) sec Sodium (137-145) mmol/L Potassium (3.5-5.1) mmol/L Chloride (98-107) mmol/L Carbon Dioxide (22-30) mmol/L Anion Gap mmol/L BUN (9-20) mg/dL Creatinine (0.66-1.25) mg/dL Est GFR (CKD-EPI)AfAm (>60 ml/min/1.73 sqM) Est GFR (CKD-EPI)NonAf (>60 ml/min/1.73 sqM) Glucose (74-99) mg/dL Calcium (8.4-10.2) mg/dL Magnesium (1.6-2.3) mg/dL Total Bilirubin (0.2-1.3) mg/dL AST (17-59) U/L ALT (4-49) U/L Alkaline Phosphatase (38-126) U/L Troponin I <0.012 (0.000-0.034) ng/mL NT-Pro-B Natriuret Pep pg/mL Total Protein (6.3-8.2) g/dL Albumin (3.5-5.0) g/dL - EKG Data -: EKG Interpreted by Me EKG Comments: 12-lead Electrocardiogram Interpretation Note EKG was reviewed and interpreted by myself. 12-lead ECG performed at 0929 is interpreted by me as revealing normal sinus rhythm at a rate of 65 beats per minute. [place] is normal. MO Intervals 152 ms, QRS duration is 81 ms, QTc is 400 ms.. There were no ST or T wave abnormalities to suggest myocardial ischemia or injury. R wave progression across the precordium was satisfactory. By my interpretation this EKG is non-diagnostic for acute ischemia. Disposition Clinical Impression: DVT (deep venous thrombosis), Knee sprain, Anxiety Narrative: possible chronic PE Disposition: HOME SELF-CARE Condition: Fair Instructions (If sedation given, give patient instructions): Knee Sprain (ED) Prescriptions: LORazepam [Ativan] 0.5 mg PO DAILY PRN 3 Days #3 tab PRN Reason: Anxiety Cyclobenzaprine [Flexeril] 5 mg PO TID PRN 7 Days #21 tablet PRN Reason: Pain Diclofenac Sodium [Voltaren] 25 mg PO TID PRN 7 Days #21 tab PRN Reason: Pain Is patient prescribed a controlled substance at d/c from ED?: Yes Referrals: Laura Myers DO [Primary Care Provider] - 1-2 days Time of Disposition: 12:52
== END 2022-10-27 13:29 | disposition home or self-care (01) ==
LOC: EC 09:19
DX: S83.91XA Sprain of unspecified site of right knee, initial encounter (principal); I82.401 Acute embolism and thrombosis of unspecified deep veins of right lower extremity; F41.9 Anxiety disorder, unspecified; Z88.5 Allergy status to narcotic agent; Z79.01 Long term (current) use of anticoagulants; W19.XXXA Unspecified fall, initial encounter
CPT/HCPCS: 36415; 93005; 83880; 80053; 83735; 84484; 85025; 85610; 85730; 73590; 73562; 71275; 99285; 96374; 96361 ×2; J1885; Q9967